=== PATIENT | female | born 1950 | race Caucasian/White ===

== ENCOUNTER 2019-02-26 13:07 | Emergency (ER) | payer MEDICARE | END 2019-02-26 13:46 | disposition home or self-care (01) | LOC: BURERS 13:07 | DX: M23.92 Unspecified internal derangement of left knee (principal); E78.5 Hyperlipidemia, unspecified; E78.00 Pure hypercholesterolemia, unspecified; I10 Essential (primary) hypertension; Z79.899 Other long term (current) drug therapy | CPT/HCPCS: 99283 ==

== ENCOUNTER 2019-08-14 00:55 | Emergency (ER) | payer OTHER, MEDICARE ==
[2019-08-14] MEDS ORDERED: Morphine 2 MG/ML SYRINGE ONE (01:24)
[2019-08-14] MEDS ORDERED: Ondansetron PF 4 MG/2 ML Vial ONE (01:24)
[2019-08-14 01:39] LABS: #Basophils 0.1 thou/uL (0.0-0.2); #Eosinphils 0.2 thou/uL (0.0-0.7); #Lymphocytes 1.4 thou/uL (1.20-3.40); #Monocytes 0.5 thou/uL (0.11-0.59); %Basophils 0.7 % (0.0-1.0); %Monocytes 5.2 % (0.0-10.0); %Neutrophils 78.2 % (42.0-75.0); Hemoglobin 12.4 g/dL (12.0-16.0); Mean Corpuscular HGB CONC 30.6 g/dL (32.0-36.0); Mean Corpuscular Hemoglobin 29.4 pg (27.0-31.0); Mean Corpuscular Volume 95.8 fL (78.0-98.0); Mean Platelet Volume 8.2 fL (7.4-10.4); Platelet Count 189 thou/uL (130-400); RBC Distribution Width 12.4 % (11.5-14.5); Red Blood Cell (RBC) Count 4.22 mill/uL (4.20-5.40); White Blood Cell (WBC) Count 10.2 thou/uL (4.8-10.8)
[2019-08-14 01:42] LABS: MDiff Complete? YES
[2019-08-14 01:47] LABS: ALT (SGPT) 13 U/L (8-55); AST (SGOT) 12 U/L (5-34); Albumin 4.1 g/dL (3.4-4.8); Alkaline Phosphatase 91 U/L (40-110); Anion Gap 17 mmol/L (10-20); BUN (Urea Nitrogen) 33 mg/dL (9.8-20.1); Bilirubin, Total 0.2 mg/dL (0.2-1.2); Calc. Creatinine Clearance 0 mL/min (70-130); Carbon Dioxide 22 mmol/L (23-31); Chloride 108 mmol/L (98-107); Estimated GFR-MDRD 61; Globulin 2.2 g/dL (2.4-3.5); Glucose 155 mg/dL (80-115); Lipase 33 U/L (8-78); Potassium 3.5 mmol/L (3.5-5.1); Protein, Total 6.3 g/dL (6.0-8.3); Sodium 143 mmol/L (136-145)
--- NOTE | 2019-08-14 11:00 | CT ---
CT ANGIO ABDOMEN AND PELVIS: 08/14/2019 COMPARISON: CT abdomen and pelvis from 10/03/2018. TECHNIQUE: Today's study was initially done with and without IV contrast. A bolus of IV contrast was then done a nd scanning was done in the arterial phase. Multiplanar reconstructions were then obtained. Compariso n is made with the prior study dated 10/03/2018. FINDINGS: ABDOMEN: The lung bases are clear. There is a small, 3 to 4 mm nodule in the right middle lobe. In re trospect it was present on the 2019 study and has not changed. The odds of it having any clinical sig nificance are therefore extremely low. The liver, spleen, pancreas, gallbladder, adrenal glands and k idneys show no acute findings. There is a small, 1.7 cm cyst in the left kidney, seen on the prior st udy, that has changed little. There is no hydronephrosis. A small hiatal hernia is noted. There is no distention of bowel. Diverticulosis without diverticulitis is seen. There is no free air or free flu id. PELVIS: No pelvic masses, fluid collections or inflammatory changes. The abdominal aorta shows no aneurysm or dissection. All mesenteric arteries fill normally. There is some calcification at the origin of each renal artery but both fill normally. The common, external an d internal iliac arteries fill appropriately. Extensive degenerative changes are present in the spine. 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 There is also a degenerated di sk at L5-S1. IMPRESSION: 1. No evidence of significant aortic pathology and all major vessels originating from it fill appropr iately. 2. Small hiatal hernia. 3. Mild colonic diverticulosis. 4. Small left renal cyst, stable. 5. 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 REPORT IN AGREEMENT WITH PRELIMINARY READING BY [facility]. POS: HOME
[2019-08-14] MEDS ORDERED: Iopamidol 370 76% 100 ML VIAL ONE (17:23)
== END 2019-08-14 04:00 | disposition home or self-care (01) ==
LOC: BURERS 00:55
DX: R10.9 Unspecified abdominal pain (principal); R11.2 Nausea with vomiting, unspecified; R10.816 Epigastric abdominal tenderness; E78.5 Hyperlipidemia, unspecified; E78.00 Pure hypercholesterolemia, unspecified; I10 Essential (primary) hypertension; Z79.899 Other long term (current) drug therapy
CPT/HCPCS: 74174; 80053; 83605; 83690; 85025; 93005; 96372; 96374; 96375; J0500; J2270; J2405; Q9967

== ENCOUNTER 2021-05-17 10:20 | Emergency (ER) | payer MEDICARE ==
[2021-05-17] MEDS ORDERED: Ibuprofen 100 MG/5 ML UDCUP ONE (11:58)
[2021-05-17] MEDS ORDERED: methylPREDNISolone Sod Succ/PF 125 MG/2 ML VIAL ONE (12:03)
[2021-05-17 20:16] LABS: SARS-CoV-2 PCR by NAA DETECTED (NotDetected)
== END 2021-05-17 12:54 | disposition home or self-care (01) ==
LOC: BURERS 10:20
DX: U07.1 COVID-19 (principal); J06.9 Acute upper respiratory infection, unspecified; J04.0 Acute laryngitis; I10 Essential (primary) hypertension; E78.5 Hyperlipidemia, unspecified; E78.00 Pure hypercholesterolemia, unspecified
CPT/HCPCS: 87081; 87430; 87804 ×2; U0003; U0005; 96372; 99283; J2930